=== PATIENT | female | born 1955 | race African-American/Black ===

== ENCOUNTER 2021-04-10 09:48 | Emergency (ER) | payer OTHER ==
[~2021-04-10] VITALS: Ht 160 cm; Wt 59.0 kg
[2021-04-10] MEDS ORDERED: METFORMIN HCL500 M3 PO (10:00)
[2021-04-10] MEDS ORDERED: KEPPRA1000 MG PO (10:00)
[2021-04-10 12:24] LABS: ABSOLUTE LYMPHOCYTES 1.8 thou/uL (0.8-5.3); ABSOLUTE MONOCYTES 0.4 thou/uL (0.0-1.2); BASOPHILS 0.7 %; EOSINOPHILS 0.7 %; HEMATOCRIT 40.2 % (37.0-47.0); HEMOGLOBIN 13.3 gm/dL (12.0-15.0); LYMPHOCYTES 29.2 %; MCH 31.6 pg (26.0-34.0); MCHC 33.1 g/dL (28.0-37.0); MCV 95.3 fL (80.0-100.0); MONOCYTES 5.8 %; MPV 7.6 fl. (7.2-11.1); NUCLEATED RBCS 0 /100WBC; PLATELET COUNT* 250 thou/uL (150-400); POLYS 63.6 %; RBC 4.22 mil/uL (4.20-5.00); RDW-CV 13.9 % (10.5-14.5); WBC 6.3 thou/uL (4.0-11.0)
[2021-04-10 12:34] LABS: CALCIUM 8.6 mg/dL (8.5-10.1); CREATININE 0.8 mg/dL (0.6-1.3)
[2021-04-10 12:36] LABS: POTASSIUM 2.8 mmol/L (3.5-5.1)
[2021-04-10 12:39] LABS: ALBUMIN 3.6 g/dL (3.4-5.0); TOTAL BILIRUBIN 0.4 mg/dL (<0.1-1.0); TOTAL PROTEIN 6.7 g/dL (6.4-8.2)
[2021-04-10] MEDS ORDERED: K-DUR10 MEQ PO (12:54)
[2021-04-10] MEDS ORDERED: KEPPRA XR500 MG PO (12:54)
[2021-04-10 13:21] VITALS: BP 102/43
[2021-04-10 14:00] LABS: ESR (SEDRATE) 5 mm/hr (0-30)
--- NOTE | 2021-04-11 12:26 | EKG ---
[place] [address] ELECTROCARDIOGRAM REPORT Name: JAYSHREE LEO Room: [facility]#: [id number] Admission: 04/10/21 Attend Phys: Discharge: 04/10/21 Date of : 59 Date of Service: 04/10/21 1120 Report #: [id number] THIS REPORT FOR: //name// [facility] ED Test Date: 2021-04-10 Test Time: 11:20:37 Pat Name: JAYSHREE LEO Department: Room: Gender: [employer]: : 1955 Requested By: Florinda Raya Order Number: [id number] MD: Adriel Martel Measurements Intervals [place] Rate: 85 P: 48 DC: 125 QRS: 55 QRSD: 76 T: -44 QT: 376 QTc: 447 Interpretive Statements Sinus rhythm Probable left atrial enlargement Possible anteroseptal infarct, old Borderline T abnormalities, inferior leads No previous ECG available for comparison Electronically Signed On 04-11-2021 12:26:43 BREADMAN by Adriel Martel [email or web address] <ELECTRONICALLY SIGNED> By: Adriel Martel MD, [facility] 04/11/21 1226 1120 1120 Adriel Martel MD, [facility] /EPI
== END 2021-04-10 13:22 | disposition still patient (30) ==
LOC: M.ERS 09:48
PROVIDERS: Physician Assistant
DX: E87.6 Hypokalemia (principal); R56.9 Unspecified convulsions; E11.9 Type 2 diabetes mellitus without complications; I10 Essential (primary) hypertension; Z76.0 Encounter for issue of repeat prescription; Z79.899 Other long term (current) drug therapy